=== PATIENT | female | born 1980 | race Caucasian/White ===

== ENCOUNTER 2016-12-13 05:09 | Emergency (ER) | payer MEDICARE, MEDICAID ==
[~2016-12-13] VITALS: Ht 165.1 cm; Wt 94.1 kg
[~2016-12-13 05:09] MED LIST: ALBUTEROL0.09 MG/A4 IH; ALBUTEROL0.83 MG/ML IH; ANTIBIOTIC; CEPHALEXIN500 M1 PO; CLINDAMYCIN150 MG PO; CYMBALTA 20MG20 MG PO; FIORICET W/CODE1 CA1 PO; FLEXERIL; FLEXERIL 1010 MG/TAB PO; FLEXERIL10 MG PO; LORTAB 5/500 501 TAB PO; LYRICA 25MG CAP25 MG PO; MOBIC15 MG PO; MOTRIN 800800 MG/TAB PO; NAPROSYN; NAPROSYN500 MG PO; NO HOME MEDICATIONS; NORCO 325 MG-51 TAB PO; NORCO 325 MG-7.1 TAB PO; PERCOCET 325 MG1 TA2 PO; PHENERGAN 25 TA25 MG PO; PREDNISONE10 M1 PO; PRENATAL1 TA1 PO; PRENTAL 1 PLUS1 TAB PO; PRILOSEC 20MG20 MG PO; PROMETHAZINE12.5 M5 PO; PROVENTIL0.09 MG/A1 IH; RT ALBUTER2.5 MG/0.5 IH; VITAMIN D 400400 IU PO; VITAMIN D 50,1.25 MG PO; VITAMIN E100 I3 PO; ZANTAC 7575 MG PO; ZITHROMAX 250M250 MG PO; ZOFRAN ODT4 MG PO; ZOFRAN4 M1 PO; [UNRECOGNIZED DRUG - CODE] PO; [UNRECOGNIZED DRUG - OTHER]
[2016-12-13] MEDS ORDERED: FLEXERIL 1010 MG/TAB PO (05:16)
[2016-12-13] MEDS ORDERED: ZITHROMAX 250M250 MG PO (05:16)
[2016-12-13 05:43] LABS: BASO # 0.1 (0.0-0.2); BASO % 0.5 % (0.0-2.0); EOS # 0.1 (0.0-0.7); EOS % 0.7 % (0-4.0); GRAN # 7.4 (1.4-6.5); GRAN % 69.2 % (42.2-75.2); HEMATOCRIT 38.1 % (37.0-47.0); LYMPH # 2.4 (1.2-3.4); LYMPH % 22.8 % (20.0-51.0); MEAN CELL VOLUME 86 fl (80.0-100.0); MEAN CORPUSCULAR HEMOGLOBIN 29 pg (27.0-31.0); MEAN CORPUSCULAR HGB CONC 34 g/dl (33.0-37.0); MEAN PLATELET VOLUME 9.7 fl (7.4-10.4); MONO # 0.7 (0.1-0.6); MONO % 6.5 % (1.7-9.3); PLATELET COUNT 259 K/mm3 (130-400); RED BLOOD COUNT 4.43 M/mm3 (4.10-5.30); REDCELL DISTRIBUTION WIDTH-CV 13.2 % (11.5-14.5); WHITE BLOOD COUNT 10.7 K/mm3 (4.8-10.8)
[2016-12-13 05:57] LABS: ADJUSTED CALCIUM 8.9 mg/dL (8.4-10.2); BILIRUBIN,TOTAL 0.7 mg/dL (0.0-1.0); CALCIUM 8.9 mg/dL (8.4-10.2); CREATININE, serum 0.83 mg/dL (0.52-1.25); POTASSIUM 3.6 mmol/L (3.4-5.0); TOTAL PROTEIN 7.3 gm/dL (6.4-8.2)
[2016-12-13 06:10] LABS: INFLUENZA B NEGATIVE
[2016-12-13 07:09] LABS: PH 6 (5-8); SQUAMOUS EPITHELIAL 0-2 /hpf; URINE APPEARANCE Clear; URINE BACTERIA None Seen /hpf; URINE BILIRUBIN Negative (NEGATIVE); URINE BLOOD Negative (NEGATIVE); URINE COLOR Yellow; URINE GLUCOSE Negative (NEGATIVE); URINE KETONE Negative (NEGATIVE); URINE RBC 0-2 /hpf; URINE WBC 0-2 /hpf
[2016-12-13 07:29] VITALS: BP 100/57; PULSE 88; TEMP 98.5
== END 2016-12-13 07:31 | disposition home or self-care (01) ==
LOC: COL.ER 05:09
PROVIDERS: Emergency Medicine
DX: B34.9 Viral infection, unspecified (principal); R51 Headache; R50.9 Fever, unspecified; R05 Cough; M79.7 Fibromyalgia
CPT/HCPCS: J1200; J1885; J7030

== ENCOUNTER 2017-03-31 19:22 | Emergency (ER) | payer MEDICARE, MEDICAID ==
[~2017-03-31] VITALS: Ht 165.1 cm; Wt 90.9 kg
[2017-03-31 19:38] VITALS: BP 120/74; PULSE 108; TEMP 99.1
[2017-03-31] MEDS ORDERED: AMOXICILLIN 8751 TAB PO (21:26)
== END 2017-03-31 21:56 | disposition home or self-care (01) ==
LOC: COL.ER 19:22
DX: K04.7 Periapical abscess without sinus (principal); Z87.891 Personal history of nicotine dependence; K03.81 Cracked tooth

== ENCOUNTER 2019-02-20 19:59 | Emergency (ER) | payer MEDICARE, MEDICAID ==
[~2019-02-20] VITALS: Ht 167.6 cm; Wt 95.5 kg
[~2019-02-20 19:59] MED LIST changes: +00186-0372-20 IH; +AMOXICILLIN 8751 TAB PO; +D-2000 90 MG-201 TAB PO; +EC NAPROSYN500 MG PO; +LYRICA 75MG CAP75 MG PO; +MULTI-VITAMIN W1 TA2 PO; +OMEGA-31 SGL; +PROAIR HFA0.09 MG/AC IH; +ULTRAM 50MG TAB50 MG PO; +XARELTO15 MG PO
[2019-02-20 20:53] LABS: COLLECTION METHOD CLEAN CATCH
[2019-02-20 20:58] LABS: PH 8 (5-8); URINE APPEARANCE Clear; URINE BACTERIA None Seen /hpf; URINE BILIRUBIN Negative (NEGATIVE); URINE BLOOD Negative (NEGATIVE); URINE COLOR Yellow; URINE GLUCOSE Negative (NEGATIVE); URINE KETONE Negative (NEGATIVE); URINE LEUKOCYTE ESTERASE Negative (NEGATIVE); URINE NITRATE Negative (NEGATIVE); URINE PROTEIN(semi-quant) Negative (NEGATIVE)
[2019-02-20 21:06] LABS: BASO # 0.1 (0.0-0.2); BASO % 0.4 % (0.0-2.0); EOS # 0.2 (0.0-0.7); EOS % 1.4 % (0-4.0); GRAN # 9.3 (1.4-6.5); GRAN % 74.8 % (42.2-75.2); HEMOGLOBIN 13.9 g/dl (12.5-16.0); LYMPH % 15.7 % (20.0-51.0); MEAN CELL VOLUME 89 fl (80.0-100.0); MEAN CORPUSCULAR HEMOGLOBIN 30 pg (27.0-31.0); MEAN CORPUSCULAR HGB CONC 33 g/dl (33.0-37.0); MONO # 0.9 (0.1-0.6); MONO % 7.5 % (1.7-9.3); PLATELET COUNT 234 K/mm3 (130-400); REDCELL DISTRIBUTION WIDTH-CV 13.6 % (11.5-14.5)
[2019-02-20 21:18] LABS: ALBUMIN 4.1 gm/dL (3.5-5.0); BILIRUBIN,TOTAL 0.7 mg/dL (0.0-1.0); C-REACTIVE PROTEIN 3.8 mg/dL (0.0-0.9); CALCIUM 9.1 mg/dL (8.4-10.2); CREATININE, serum 0.85 (0.52-1.25); POTASSIUM 4.1 mmol/L (3.4-5.0); STREP SCREEN NEGATIVE; TOTAL PROTEIN 8.2 gm/dL (6.4-8.2)
[2019-02-20] MEDS ORDERED: CEPHALEXIN500 M1 PO (21:51)
[2019-02-20 21:55] VITALS: TEMP 100.9
[2019-02-20 22:57] VITALS: BP 121/57; PULSE 106
== END 2019-02-20 22:57 | disposition home or self-care (01) ==
LOC: COL.ER 19:59
PROVIDERS: Emergency Medicine
DX: J03.90 Acute tonsillitis, unspecified (principal); H10.9 Unspecified conjunctivitis; M79.7 Fibromyalgia; Z90.49 Acquired absence of other specified parts of digestive tract; Z90.710 Acquired absence of both cervix and uterus; Z79.51 Long term (current) use of inhaled steroids
CPT/HCPCS: J1885; J3010; J7030

== ENCOUNTER 2019-11-03 09:29 | Day surgery (SDC) | payer MEDICARE, MEDICAID ==
[~2019-11-03] VITALS: Ht 167.6 cm; Wt 100.7 kg
[~2019-11-03 09:29] MED LIST changes: -OMEGA-31 SGL; +OMEGA-31 SGL PO
[2019-11-03 10:17] VITALS: BP 115/83; PULSE 78; TEMP 98.2
--- NOTE | 2019-11-03 10:31 | NUR ---
TO RM 8 AT 0952- CALL LIGHT IN REACH DAUGHTER AT BEDSIDE.
[2019-11-03] MEDS ORDERED: VENTOLIN0.09 MG IH (10:37)
[2019-11-03] MEDS ORDERED: MASON NATURAL2000 IU PO (10:40)
[2019-11-03] MEDS ORDERED: [UNRECOGNIZED DRUG - OTHER] PO (10:45)
[2019-11-03] MEDS ORDERED: [UNRECOGNIZED DRUG - REMARK] PO (10:47)
[2019-11-03] MEDS ORDERED: CENTRUM SILVER1 TAB PO (10:47)
[2019-11-03] MEDS ORDERED: PREDNISONE10 MG PO (10:49)
[2019-11-03] MEDS ORDERED: LYRICA 100MG C100 M1 PO (10:50)
[2019-11-03] MEDS ORDERED: TURMERIC500 MG PO (10:51)
[2019-11-03] MEDS ORDERED: XARELTO20 MG PO (10:51)
[2019-11-03] MEDS ORDERED: [UNRECOGNIZED DRUG - REMARK] TOP (10:57)
[2019-11-03 11:55] VITALS: BP 104/72; PULSE 74; TEMP 97.7
--- NOTE | 2019-11-03 11:55 | NUR ---
Pt returned via cart to recliner in [facility] 8. Pt drowsy. Daughter, Susy in room and translating for pt. VSS-see flowsheet. Given water per request, pt refused food and stated she wants to eat at [employer] when she leaves. Legs elevated in recliner. Call light in reach.
[2019-11-03 12:10] VITALS: BP 101/75; PULSE 74
[2019-11-03 12:25] VITALS: BP 108/78; PULSE 67
--- NOTE | 2019-11-03 12:30 | NUR ---
VS remain stable. Dr Noland in to visit with pt and daughter post procedure. Pt eager to leave. IV removed and pt dressed. Discharge teaching completed, pt verbalized understanding. Taken via wheelchair to private vehicle for dc home with driving.
== END 2019-11-03 12:30 | disposition home or self-care (01) ==
LOC: SDCO 09:29
DX: K29.30 Chronic superficial gastritis without bleeding (principal); K92.1 Melena; K64.0 First degree hemorrhoids; J45.909 Unspecified asthma, uncomplicated; G89.29 Other chronic pain; F32.9 Major depressive disorder, single episode, unspecified; F41.9 Anxiety disorder, unspecified; Z83.71 Family history of colonic polyps; E66.9 Obesity, unspecified; Z68.36 Body mass index [BMI] 36.0-36.9, adult; Z90.49 Acquired absence of other specified parts of digestive tract; Z88.1 Allergy status to other antibiotic agents; Z90.710 Acquired absence of both cervix and uterus; Z91.040 Latex allergy status; Z79.01 Long term (current) use of anticoagulants; Z79.52 Long term (current) use of systemic steroids; Z87.891 Personal history of nicotine dependence
CPT/HCPCS: J2704; J7120

== ENCOUNTER → 2019-11-08 | Outpatient (CLI) | payer MEDICARE, MEDICAID ==
[~2019-11-08] MED LIST changes: +CENTRUM SILVER1 TAB PO; +LYRICA 100MG C100 M1 PO; +MASON NATURAL2000 IU PO; +PREDNISONE10 MG PO; +TURMERIC500 MG PO; +VENTOLIN0.09 MG IH; +XARELTO20 MG PO; +[UNRECOGNIZED DRUG - OTHER] PO; +[UNRECOGNIZED DRUG - REMARK] PO; +[UNRECOGNIZED DRUG - REMARK] TOP
== END ==
LOC: COL.RAD 14:00
DX: M53.3 Sacrococcygeal disorders, not elsewhere classified (principal); M48.00 Spinal stenosis, site unspecified
CPT/HCPCS: G0260; J3301

== ENCOUNTER 2019-11-27 06:32 | Emergency (ER) | payer MEDICARE, MEDICAID ==
[~2019-11-27] VITALS: Ht 165.1 cm; Wt 104.5 kg
[2019-11-27 06:36] VITALS: TEMP 99.4
[2019-11-27] MEDS ORDERED: LYRICA 25MG CAP25 MG PO (07:15)
[2019-11-27] MEDS ORDERED: DRISDOL50000 IU PO (07:16)
[2019-11-27] MEDS ORDERED: 00186-0372-20 IH (07:17)
[2019-11-27] MEDS ORDERED: PROAIR HFA0.09 MG/AC IH (07:17)
[2019-11-27] MEDS ORDERED: MASON NATURAL2000 IU PO (07:18)
[2019-11-27] MEDS ORDERED: MULTI VITAMINS1 TAB PO (07:19)
[2019-11-27] MEDS ORDERED: EPA FISH OIL1 SGL PO (07:19)
[2019-11-27] MEDS ORDERED: MOBIC15 MG PO (07:19)
[2019-11-27] MEDS ORDERED: XARELTO15 MG PO (07:20)
[2019-11-27] MEDS ORDERED: ZITHROMAX Z PA250 MG PO (07:30)
[2019-11-27 08:37] LABS: COLLECTION METHOD CLEAN CATCH
[2019-11-27 08:40] LABS: BASO % 0.4 % (0.0-2.0); EOS % 0.1 % (0-4.0); GRAN # 4.6 (1.4-6.5); HEMATOCRIT 42.5 % (37.0-47.0); HEMOGLOBIN 14.2 g/dl (12.5-16.0); LYMPH % 27.2 % (20.0-51.0); MEAN CELL VOLUME 89 fl (80.0-100.0); MEAN CORPUSCULAR HEMOGLOBIN 30 pg (27.0-31.0); MEAN CORPUSCULAR HGB CONC 33 g/dl (33.0-37.0); MEAN PLATELET VOLUME 10.4 fl (7.4-10.4); MONO # 0.7 (0.1-0.6); MONO % 9.2 % (1.7-9.3); PLATELET COUNT 233 K/mm3 (130-400); RED BLOOD COUNT 4.77 M/mm3 (4.10-5.30); REDCELL DISTRIBUTION WIDTH-CV 13.8 % (11.5-14.5)
[2019-11-27 08:44] LABS: PH 8 (5-8); SQUAMOUS EPITHELIAL 0-2 /hpf; URINE APPEARANCE Clear; URINE BACTERIA Rare /hpf; URINE BILIRUBIN Negative (NEGATIVE); URINE BLOOD Negative (NEGATIVE); URINE COLOR Yellow; URINE GLUCOSE Negative (NEGATIVE); URINE KETONE Negative (NEGATIVE); URINE LEUKOCYTE ESTERASE 1+ (NEGATIVE); URINE NITRATE Negative (NEGATIVE); URINE PROTEIN(semi-quant) Negative (NEGATIVE); URINE RBC 0-2 /hpf; URINE UROBILINOGEN Negative (NEGATIVE)
[2019-11-27 08:57] LABS: ALANINE AMINOTRANSFERASE 72 U/L (4-34); ALBUMIN 4.2 gm/dL (3.5-5.0); ALKALINE PHOSPHATASE 61 U/L (50-136); ANION GAP 11 mmol/L (7-16); AST,SGOT 44 U/L (15-37); BILIRUBIN,TOTAL 0.9 mg/dL (0.0-1.0); BLOOD UREA NITROGEN 8 mg/dL (7-17); C-REACTIVE PROTEIN 1.9 mg/dL (0.0-0.9); CALCIUM 8.8 mg/dL (8.4-10.2); CARBON DIOXIDE 25 mmol/L (22-30); CHLORIDE 101 mmol/L (98-107); CREATININE, serum 0.91 (0.52-1.25); GLUCOSE 92 mg/dL (74-106); POTASSIUM 3.3 mmol/L (3.4-5.0); SODIUM 137 mmol/L (137-145); STREP SCREEN NEGATIVE; TOTAL PROTEIN 7.8 gm/dL (6.4-8.2)
[2019-11-27 09:05] LABS: TROPONIN-I < 0.012 ng/mL (0.000-0.035)
[2019-11-27 10:14] VITALS: BP 106/71; PULSE 103
== END 2019-11-27 10:18 | disposition home or self-care (01) ==
LOC: COL.ER → EDBD 06:33 → COL.ER 10:18
PROVIDERS: Emergency Medicine
DX: J20.9 Acute bronchitis, unspecified (principal); J45.909 Unspecified asthma, uncomplicated; M79.7 Fibromyalgia; Z79.51 Long term (current) use of inhaled steroids; Z79.01 Long term (current) use of anticoagulants
CPT/HCPCS: J1885; J2405; J7030; J8540

== ENCOUNTER 2020-03-25 19:11 | Emergency (ER) | payer MEDICARE, MEDICAID ==
[~2020-03-25] VITALS: Ht 162.6 cm; Wt 101.4 kg
[~2020-03-25 19:11] MED LIST changes: +DRISDOL50000 IU PO; +EPA FISH OIL1 SGL PO; +MULTI VITAMINS1 TAB PO; +ZITHROMAX Z PA250 MG PO
[2020-03-25 19:14] VITALS: TEMP 97.8
[2020-03-25 21:00] VITALS: BP 117/71; PULSE 95
== END 2020-03-25 20:55 | disposition home or self-care (01) ==
LOC: COL.ER 19:11
DX: N99.820 Postprocedural hemorrhage of a genitourinary system organ or structure following a genitourinary system procedure (principal); Z79.51 Long term (current) use of inhaled steroids; Z79.52 Long term (current) use of systemic steroids
CPT/HCPCS: J1170; J2550

== ENCOUNTER → 2020-06-17 | Outpatient (CLI) | payer MEDICARE, MEDICAID | LOC: MHCPAIN 14:53 | DX: M47.817 Spondylosis without myelopathy or radiculopathy, lumbosacral region (principal); M54.5 Low back pain; G89.29 Other chronic pain; M53.3 Sacrococcygeal disorders, not elsewhere classified | CPT/HCPCS: G0463 ==

== ENCOUNTER 2021-09-13 06:15 | Emergency (ER) | payer MEDICARE, MEDICAID ==
[~2021-09-13] VITALS: Ht 157.5 cm; Wt 109.1 kg
[2021-09-13 06:44] VITALS: TEMP 98.2
[2021-09-13 07:26] VITALS: BP 159/99; PULSE 101
== END 2021-09-13 07:27 | disposition home or self-care (01) ==
LOC: COL.ER 06:15
DX: U07.1 COVID-19 (principal); E11.8 Type 2 diabetes mellitus with unspecified complications; Z86.718 Personal history of other venous thrombosis and embolism; Z91.040 Latex allergy status; Z79.01 Long term (current) use of anticoagulants

== ENCOUNTER 2023-11-15 12:02 | Emergency (ER) | payer MEDICARE, MEDICAID ==
[~2023-11-15] VITALS: Ht 165.1 cm; Wt 111.4 kg
[~2023-11-15 12:02] MED LIST changes: +DOXYCYCLINE 10100 MG PO
[2023-11-15 12:14] VITALS: TEMP 97.8
[2023-11-15] MEDS ORDERED: Ketorolac 15 MG/ML VIAL IV ONE (13:00)
[2023-11-15] MEDS ORDERED: NS 1,000 ML IV ONE (13:00)
[2023-11-15] MEDS ORDERED: diphenhydrAMINE 50 MG/ML 1 ML VIAL IV ONE (13:00)
[2023-11-15 13:18] LABS: BASO # 0.1 K/mm3 (0.0-0.2); BASO % 0.7 % (0.0-2.0); EOS # 0.1 K/mm3 (0.0-0.7); EOS % 1.9 % (0.0-4.0); GRAN # 4.7 K/mm3 (1.4-6.5); GRAN % 63.3 % (42.2-75.2); HEMATOCRIT 41.1 % (37.0-47.0); HEMOGLOBIN 13.4 g/dl (12.5-16.0); LYMPH # 2.2 K/mm3 (1.2-3.4); LYMPH % 29.4 % (20.0-51.0); MEAN CELL VOLUME 87 fl (80.0-100.0); MEAN CORPUSCULAR HEMOGLOBIN 28 pg (27-31); MEAN CORPUSCULAR HGB CONC 33 g/dl (33.0-37.0); MEAN PLATELET VOLUME 9.8 fl (7.4-10.4); MONO # 0.3 K/mm3 (0.1-0.6); MONO % 4.4 % (1.7-9.3); PLATELET COUNT 288 K/mm3 (130-400); RED BLOOD COUNT 4.75 M/mm3 (4.10-5.30); REDCELL DISTRIBUTION WIDTH-CV 14.6 % (11.5-14.5)
[2023-11-15 13:29] LABS: ALBUMIN 3.7 gm/dL (3.5-5.0); BILIRUBIN,TOTAL 0.5 mg/dL (0.2-1.2); CALCIUM 9.2 mg/dL (8.4-10.2); CREATININE, serum 0.8 mg/dL (0.57-1.11); POTASSIUM 4.3 mmol/L (3.5-4.5); TOTAL PROTEIN 7.2 gm/dL (6.2-8.1)
[2023-11-15] MEDS ORDERED: NORCO 325 MG-51 TAB PO (14:09)
[2023-11-15 14:31] VITALS: BP 127/107; PULSE 81
== END 2023-11-15 14:36 | disposition home or self-care (01) ==
LOC: COL.ER 12:02
PROVIDERS: Personal Emergency Response Attendant
DX: R51.9 Headache, unspecified (principal); Z91.040 Latex allergy status
CPT/HCPCS: J0780; J1200; J1885; J7030

== ENCOUNTER → 2024-05-18 | Outpatient (CLI) | payer MEDICARE | LOC: COL.RAD 11:45 | DX: M50.10 Cervical disc disorder with radiculopathy, unspecified cervical region (principal); M48.02 Spinal stenosis, cervical region ==